=== PATIENT | female | born 1985 | race Two or more races ===

== ENCOUNTER 2022-10-06 12:11 | Emergency (ER) | payer OTHER ==
[~2022-10-06] VITALS: Ht 157.5 cm; Wt 90.7 kg
[2022-10-06] MEDS ORDERED: SYNTHROID100 MCG PO (12:41)
[2022-10-06] MEDS ORDERED: NORFLEX100MG PO (16:09)
[2022-10-06] MEDS ORDERED: KETO10TA2 PO (16:09)
== END 2022-10-06 16:17 | disposition home or self-care (01) ==
LOC: ER 12:11
DX: M54.2 Cervicalgia (principal); Z20.822 Contact with and (suspected) exposure to COVID-19; E03.9 Hypothyroidism, unspecified